=== PATIENT | male | born 1965 ===

== ENCOUNTER 2020-08-16 09:15 | Inpatient (IN) | payer OTHER ==
[~2020-08-16] VITALS: Ht 177.8 cm; Wt 65.8 kg
[2020-08-16] MEDS ORDERED: ENALAPRIL MALEA10 MG PO (12:17)
[2020-08-16] MEDS ORDERED: FORTAMET1000 MG PO (12:17)
[2020-08-16] MEDS ORDERED: VITAMIN D3 PO (12:18)
[2020-08-16] MEDS ORDERED: GLIPIZ PO (12:18)
[2020-08-23] MEDS ORDERED: ROSUVASTATIN CA20 MG (07:56)
[2020-08-23] MEDS ORDERED: GLIPIZIDE5 MG (07:56)
[2020-08-23] MEDS ORDERED: VITAMIN D310 MC6 (07:57)
[2020-08-26] MEDS ORDERED: OXYC1TAB9 PO (10:31)
[2020-08-26] MEDS ORDERED: HYOSCYAMINE0.125 M1 SL (10:31)
[2020-08-26] MEDS ORDERED: INTESTINEX680 M1 PO (10:32)
== END 2020-08-26 11:27 | disposition home or self-care (01) | DRG 331 ==
LOC: O/R 08-23 05:25 → SURG 08-23 05:25 → SURH 08-23 07:00 → SURG 08-23 10:57
PROVIDERS: ADMIT Surgery; ATTEND Surgery
PROC: 0DBN4ZZ Excision of Sigmoid Colon, Percutaneous Endoscopic Approach (ICD-10-PCS; 2020-08-23)
PROC: 07BC4ZX Excision of Pelvis Lymphatic, Percutaneous Endoscopic Approach, Diagnostic (ICD-10-PCS; 2020-08-23)
PROC: 0DJD8ZZ Inspection of Lower Intestinal Tract, Via Natural or Artificial Opening Endoscopic (ICD-10-PCS; 2020-08-23)
PROC: 0DBP4ZZ Excision of Rectum, Percutaneous Endoscopic Approach (ICD-10-PCS; principal; 2020-08-23 07:00)
DX: C19 Malignant neoplasm of rectosigmoid junction (principal); I11.9 Hypertensive heart disease without heart failure; E11.9 Type 2 diabetes mellitus without complications; G47.33 Obstructive sleep apnea (adult) (pediatric); D50.0 Iron deficiency anemia secondary to blood loss (chronic)

== ENCOUNTER 2020-09-27 05:48 | Day surgery (SDC) | payer OTHER ==
[~2020-09-27 05:48] MED LIST: ENALAPRIL MALEA10 MG PO; FORTAMET1000 MG PO; GLIPIZ PO; GLIPIZIDE5 MG; HYOSCYAMINE0.125 M1 SL; INTESTINEX680 M1 PO; OXYC1TAB9 PO; ROSUVASTATIN CA20 MG; VITAMIN D3 PO; VITAMIN D310 MC6
[2020-09-27] MEDS ORDERED: ULTRACET PO (09:19)
== END 2020-09-27 12:10 | disposition home or self-care (01) ==
LOC: CIR.AMB 05:48
PROVIDERS: ATTEND Surgery
DX: C18.7 Malignant neoplasm of sigmoid colon (principal); Z20.822 Contact with and (suspected) exposure to COVID-19
CPT/HCPCS: 36561; C1751